=== PATIENT | female | born 1995 | race Caucasian/White ===

== ENCOUNTER 2019-03-27 10:57 | Emergency (ER) | payer OTHER ==
[~2019-03-27] VITALS: Ht 167.6 cm; Wt 83.0 kg
[2019-03-27] MEDS ORDERED: KETOROLAC 30MG/ML VIAL IM ONE (11:30)
[2019-03-27 12:07] VITALS: BP 127/69
== END 2019-03-27 12:09 | disposition home or self-care (01) ==
LOC: ER 11:16
DX: M54.5 Low back pain (principal); F17.200 Nicotine dependence, unspecified, uncomplicated
CPT/HCPCS: 81025; 96372; 99283; J1885